=== PATIENT | female | born 1970 | race Caucasian/White ===

== ENCOUNTER 2018-08-09 10:56 | Inpatient (IN) | payer OTHER ==
[~2018-08-09] VITALS: Ht 152.4 cm; Wt 82.1 kg
[~2018-08-09 10:56] MED LIST: NABUMETONE500 MG PO; PERCOCET 5/3251 TAB PO
[2018-10-04] MEDS ORDERED: OMEPRAZOLE40 MG PO (11:45)
== END 2018-10-12 15:09 | DRG 470 ==
LOC: SURH 10-10 08:12 → O/R 10-10 08:12 → SURH 10-10 10:00
PROVIDERS: ADMIT Orthopaedic Surgery
PROC: 0SRC0J9 Replacement of Right Knee Joint with Synthetic Substitute, Cemented, Open Approach (ICD-10-PCS; principal; 2018-10-10 10:00)
DX: M17.11 Unilateral primary osteoarthritis, right knee (principal); D62 Acute posthemorrhagic anemia; Z96.651 Presence of right artificial knee joint

== ENCOUNTER → 2024-03-14 | Outpatient (CLI) | payer OTHER ==
[~2024-03-14] MED LIST changes: +OMEPRAZOLE40 MG PO
== END | disposition home or self-care (01) ==
LOC: SONOGRAMA 09:03
PROVIDERS: ATTEND Orthopaedic Surgery
DX: M25.511 Pain in right shoulder (principal); M75.121 Complete rotator cuff tear or rupture of right shoulder, not specified as traumatic